=== PATIENT | female | born 1995 | race Two or more races ===

== ENCOUNTER 2018-10-17 23:29 | Emergency (ER) | payer OTHER ==
[~2018-10-17] VITALS: Ht 157.5 cm; Wt 77.1 kg
[2018-10-18] MEDS ORDERED: Ketorolac 60mg Inj IM ONE
[2018-10-18 00:10] LABS: BILIRUBIN, URINE NEGATIVE (NEGATIVE); COLOR,URINE PALE YELLOW; GLUCOSE, URINE (UA) NEGATIVE (NEGATIVE); KETONES,URINE NEGATIVE (NEGATIVE); LEUKOCYTE ESTERASE ,URINE 2+ (NEGATIVE); NITRITE,URINE NEGATIVE (NEGATIVE); PH,URINE 7 (4.5-8.0); PROTEIN,URINE NEGATIVE (NEGATIVE); UROBILINOGEN,URINE NORMAL MG/DL (0.0-1.0)
[2018-10-18 00:36] LABS: APPEARANCE,URINE SLIGHTLY CLOUDY
[2018-10-18] MEDS ORDERED: Cephalexin 500mg cap ORAL ONE (00:45)
[2018-10-18] MEDS ORDERED: CEPHALEXIN500 MG ORAL (01:08)
[2018-10-18] MEDS ORDERED: IBUPROFEN600 MG ORAL (01:08)
[2018-10-18 01:33] VITALS: BP 115/75
--- NOTE | 2018-10-18 11:00 | Diagnostic Imaging Report ---
Indication: Pelvic pain, negative test Technique: Transabdominal and transvaginal images Comparison: none Findings: Uterus measures 6.9 cm length by 3.2 cm AP. Endometrium measures 10 mm thick. No myometrial abnormality. The left ovary measures 2.2 cm length. Right ovary measures 2.3 cm length. No adnexal mass. No free cul-de-sac fluid Impression: Negative
--- NOTE | 2018-10-19 07:22 | Emergency Room Report ---
History of Present Illness General Chief Complaint: Pain Source: Patient Present Illness HPI Patient is a 23-year-old female presented after increased right-sided low back pain as well as dysuria. Patient reports having increased pain for several years. This had become somewhat worse. She reports having gradual onset of symptoms. This is worse over the past 4 days. The patient is currently on her menses. She denies any fever or vomiting. Allergies: Coded Allergies: No Known Allergies (Unverified , 10/17/18) Patient History Last Menstrual Period: 09/16/18 Now: No : 1 Para: 0 Reviewed Nursing Documentation: PMH: Agreed; PSxH: Agreed Nursing Documentation-PMH Past Medical History: No Stated History Review of Systems All Other Systems: negative except mentioned in HPI Physical Exam Vital Signs Date Time Temp Pulse Resp B/P (MAP) Pulse Ox O2 Delivery O2 Flow Rate FiO2 10/17/18 23:38 98.2 74 16 110/76 98 Room Air General Appearance: well appearing, no apparent distress, obese Head: normocephalic, atraumatic ENT: hearing grossly normal, normal voice Neck: full range of motion, supple Respiratory: no respiratory distress, speaking full sentences Cardiovascular #1: normal inspection Gastrointestinal: normal inspection, non tender, soft Genitourinary: normal inspection Musculoskeletal: normal inspection, no calf tenderness Neurologic: normal inspection, alert, oriented x3, responsive, motor strength/ tone normal, normal gait Psychiatric: mood/affect normal Skin: no rash Medical Decision Making Diagnostic Impression: Primary Impression: Urinary tract infection ER Course Patient presented for abdominal pain. Differential diagnoses included ischemic bowel, appendicitis, perforated viscus, abdominal aortic aneurysm, inferior myocardial infarction, viral gastroenteritis Because of complexity of patient's case laboratory testing and imaging studies were ordered. The urinalysis showed evidence of urinary infection pelvic ultrasound showed no evidence of ovarian torsion or ruptured cyst. Patient was noted to have fairly chronic pain. Patient was advised follow-up with primary care physician for further evaluation and treatment. The patient given prescription for antibiotics. Labs Test 10/17/18 23:45 Urine Color Pale yellow Urine Appearance Slightly cloudy Urine pH 7 (4.5-8.0) Urine Specific [place] 1.005 (1.005-1.035) Urine Protein Negative (NEGATIVE) Urine Glucose (UA) Negative (NEGATIVE) Urine Ketones Negative (NEGATIVE) Urine Blood 2+ (NEGATIVE) Urine Nitrite Negative (NEGATIVE) Urine Bilirubin Negative (NEGATIVE) Urine Urobilinogen Normal MG/DL (0.0-1.0) Urine Leukocyte Esterase 2+ (NEGATIVE) Urine RBC 2-4 /HPF (0 - 2) Urine WBC 15-20 /HPF (0 - 2) Urine Squamous Epithelial Cells Many /LPF (NONE/OCC) Urine Bacteria Moderate /HPF (NONE) Urine HCG, Qualitative Negative (NEGATIVE) Last Vital Signs Date Time Temp Pulse Resp B/P (MAP) Pulse Ox O2 Delivery O2 Flow Rate FiO2 10/18/18 01:33 98.0 80 16 115/75 98 Room Air Status: improved Disposition: HOME, SELF-CARE Condition: Stable Scripts Ibuprofen* (MOTRIN*) 600 Mg Tablet 600 MG ORAL Q8H PRN for For Pain, #30 TAB 0 Refills Prov: Dex Ravi MD 10/18/18 Cephalexin* (KEFLEX*) 500 Mg Capsule 500 MG ORAL EVERY 6 HOURS, #28 CAP Prov: Dex Ravi MD 10/18/18 Referrals: FLORENCIA EPSTEIN,REFERRING (PCP) Patient Instructions: Urinary Tract Infection Dex Ravi MD Oct 19, 2018 07:22
== END 2018-10-18 01:33 | disposition home or self-care (01) ==
LOC: EMR 23:59
DX: N39.0 Urinary tract infection, site not specified (principal); M54.5 Low back pain
CPT/HCPCS: 76830; 76856; 81003; 81025; 87086; 96372; 99283

== ENCOUNTER 2020-06-19 15:54 | Emergency (ER) | payer OTHER ==
[~2020-06-19] VITALS: Ht 154.9 cm; Wt 89.8 kg
[~2020-06-19 15:54] MED LIST: CEPHALEXIN500 MG ORAL; IBUPROFEN600 MG ORAL
[2020-06-19 16:12] VITALS: BP 113/74
--- NOTE | 2020-06-19 16:19 | Emergency Room Report ---
History of Present Illness General Chief Complaint: Eye Problems Source: Patient Present Illness HPI 25-year-old female with no symptom medical history here status post bee sting to the right lower right upper eyelid. Patient reports that she removed the stinger. This occurred 45 minutes prior to arrival. Denies to be coming contact with inside the eye. No signs of infection noted. No discharge noted. Patient has full vision. Complains of pruritus however denies pain. Denies fever and chills, anaphylaxis, chest pain, shortness of breath, cough and congestion. Denies abdominal pain, nausea vomiting and other associate symptoms. No periorbital cellulitis noted. Allergies: Coded Allergies: No Known Allergies (Unverified , 10/17/18) COVID-19 Screening Contact w/high risk pt: No Experienced COVID-19 symptoms?: No COVID-19 Testing performed HEALTH CARE MARKETING MANAGER: No Patient History Past Medical History: see triage record Past Surgical History: none Pertinent Family History: none Last Menstrual Period: 06/16/20 Now: No Immunizations: UTD Reviewed Nursing Documentation: PMH: Agreed; PSxH: Agreed Nursing Documentation-PMH Past Medical History: No Stated History Review of Systems All Other Systems: negative except mentioned in HPI Physical Exam Vital Signs Date Time Temp Pulse Resp B/P (MAP) Pulse Ox O2 Delivery O2 Flow Rate FiO2 06/19/20 16:04 98.2 75 19 113/74 (87) 94 Room Air Sp02 EP Interpretation: reviewed, normal General Appearance: no apparent distress, alert, GCS 15, non-toxic Head: normocephalic, atraumatic Eyes: bilateral eye normal inspection, bilateral eye PERRL ENT: hearing grossly normal, normal pharynx, no angioedema, normal voice Neck: full range of motion, supple/symm/no masses Respiratory: chest non-tender, lungs clear, normal breath sounds, speaking full sentences Cardiovascular #1: regular rate, rhythm, no edema Gastrointestinal: normal bowel sounds, non tender, soft, non-distended, no guarding, no rebound Genitourinary: no CVA tenderness Musculoskeletal: back normal Neurologic: alert, oriented Psychiatric: judgement/insight normal Skin: rash - Small noninfected nondraining bee sting right upper eyelid Lymphatic: no adenopathy Medical Decision Making PA Attestation All diagnosis and treatment plans were discussed and reviewed by my supervising physician Dr. Barbosa Diagnostic Impression: Primary Impression: Bee sting ER Course 25-year-old female with no symptom medical history here status post bee sting to the right lower right upper eyelid. Patient reports that she removed the stinger. This occurred 45 minutes prior to arrival. Denies to be coming contact with inside the eye. No signs of infection noted. No discharge noted. Patient has full vision. Complains of pruritus however denies pain. Denies fever and chills, anaphylaxis, chest pain, shortness of breath, cough and congestion. Denies abdominal pain, nausea vomiting and other associate symptoms. No periorbital cellulitis noted. Ddx considered but are not limited to : Cellulitis,, superficial infection, abscess Vital signs: are WNL, pt. is afebrile H&PE are most consistent with: Noninfected bee sting ORDERS: bactroban ointment, EpiPen, Benadryl ED INTERVENTIONS: None required at this time. DISCHARGE: At this time pt. is stable for d/c to home. Will provide printed patient care instructions, and any necessary prescriptions. Care plan and follow up instructions have been discussed with the patient prior to discharge. , Follow primary care provider, if changes in vision or worsening symptoms or anaphylaxis return to emergency room Last Vital Signs Date Time Temp Pulse Resp B/P (MAP) Pulse Ox O2 Delivery O2 Flow Rate FiO2 06/19/20 16:12 98.2 78 19 113/74 94 Room Air Disposition: HOME, SELF-CARE Condition: Stable Scripts Epinephrine (Epipen 2-Freddie) 0.3 Mg/0.3 Ml Auto.injct 0.3 MG IM NEEDED, #2 EA Prov: Jj Moulton 06/19/20 Diphenhydramine HCl (Benadryl) 25 Mg Capsule 25 MG PO TID, #30 CAP Prov: Jj Moulton 06/19/20 Mupirocin* (MUPIROCIN*) 22 Gm Oint...g. 1 APPLIC TOPIC THREE TIMES A DAY, #22 GM Prov: Jj Moulton 06/19/20 Patient Instructions: Bee, Wasp, or Hornet Sting Additional Instructions: Take medication as directed, follow-up with your primary care provider, was wearing eye make-up, worsening symptoms return to the emergency room Jj Moulton Jun 19, 2020 16:19
[2020-06-19] MEDS ORDERED: MUPIROCIN22 GM TOPIC (16:20)
[2020-06-19] MEDS ORDERED: BENADRYL25 M3 PO (16:20)
[2020-06-19] MEDS ORDERED: EPIPEN 2-P0.3 MG/0.3 IM (16:22)
[2020-06-19 16:24] VITALS: BP 121/71
== END 2020-06-19 16:25 | disposition home or self-care (01) ==
LOC: EMR 16:19
DX: T63.441A Toxic effect of venom of bees, accidental (unintentional), initial encounter (principal); Y92.9 Unspecified place or not applicable
CPT/HCPCS: 99282